=== PATIENT | female | born 1995 | race Caucasian/White ===

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

== ENCOUNTER 2017-08-15 15:55 | Outpatient (CLI) | END 2017-08-15 15:56 | disposition home or self-care (01) | LOC: FCC-LAB 15:55 | PROVIDERS: ATTEND Nurse Practitioner Family | DX: J02.9 Acute pharyngitis, unspecified (principal); R52 Pain, unspecified | CPT/HCPCS: 87651; 87804 ==

== ENCOUNTER 2017-08-22 14:53 | Outpatient (CLI) ==
--- NOTE | 2017-08-22 15:15 | DI ---
EXAM: Three views of the left wrist. History: Left wrist pain. Findings: No acute fracture or dislocation. No abnormal calcifications or radiopaque foreign bodies . Joint spaces are preserved. Impression: Unremarkable exam
== END 2017-08-22 14:54 | disposition home or self-care (01) ==
LOC: RAD 14:53
PROVIDERS: ATTEND Nurse Practitioner Family
DX: M25.532 Pain in left wrist (principal)

== ENCOUNTER 2017-12-27 20:32 | Emergency (ER) ==
[2017-12-27 20:41] VITALS: BP 121/80; TEMP 97.6; BMI 27.5
--- NOTE | 2017-12-27 20:53 | ED.PDOC ---
General ED Provider: Dr. AKUA KHAN Chief Complaint: Abdominal Pain Stated Complaint: Having abdominal cramping, having bleeding. checked pregancy it was positive Time Seen by Physician: 20:51 Mode of Arrival: Walk-In Information Source: Patient Primary Care Provider: IAN BREWER Nursing and Triage Documentation Reviewed and Agree: Yes Does patient meet sepsis criteria?: No If yes, has appropriate treatment been initiated?: No System Inflammatory Response Syndrome: Not Applicable Sepsis Protocol: For patient's 13 years and over: Temp is 96.8 and below OR 101 and greater Pulse >90 BPM Resp >20/minute Acutely Altered Mental Status Are patient's symptoms suggestive of a new infection, such as: -Pneumonia -Skin, Soft Tissue -Endocarditis -UTI -Bone, Joint Infection -Implantable Device -Acute Abdominal Infection -Wound Infection -Meningitis -Blood Stream Catheter Infection -Unknown [employer] Complaint Exam - Vaginal Bleeding Complaint/Exam Symptoms Are: Still present Timing: Constant Initial Severity: Moderate Current Severity: Moderate Character: Reports: Bright red, Clots Aggravating: Reports: None Alleviating: Reports: None Associated Signs and Symptoms: Reports: Cramping. Denies: Dizziness, Lightheadedness, Pale, UTI symptoms, Abdominal pain, Generalized pain : 0 Para: 0 Hx Total # of Abortions (Spontaneous & Elective): 0 Ectopic Risk Factors: Reports: None Spontaneous AB Risk Factors: Reports: None Placental Abruption Risk Factors: Reports: None Patient Rh Status: Unknown Related Surgical History: Reports: None Abdominal Findings: Present: None Differential Diagnoses: Threatened AB, Incomplete AB Review of Systems - Review Of Systems Constitutional: Reports: No symptoms Eyes: Reports: No symptoms Ears, Nose, Mouth, Throat: Reports: No symptoms Respiratory: Reports: No symptoms Cardiac: Reports: No symptoms GI: Reports: No symptoms : Reports: No symptoms Musculoskeletal: Reports: No symptoms Skin: Reports: No symptoms Neurological: Reports: No symptoms Endocrine: Reports: No symptoms Hematologic/Lymphatic: Reports: No symptoms All Other Systems: Reviewed and Negative Past Medical History - Past Medical History Previously Healthy: Yes Endocrine: Reports: None Cardiovascular: Reports: None Respiratory: Reports: None Hematological: Reports: None Gastrointestinal: Reports: None Genitourinary: Reports: None Neuro/Psych: Reports: None Musculoskeletal: Reports: None Cancer: Reports: None Last Menstrual Period: current - Surgical History General Surgical History: Reports: None - Family History Family History: Reports: None - Social History Smoking Status: Never smoker Hx Substance Use: No Alcohol Screening: Occasionally - Immunizations Tetanus Shot up to Date: Yes Physical Exam - Physical Exam Appearance: Well-appearing, No pain distress, Well-nourished Eyes: GEORGE, EOMI, Conjunctiva clear ENT: Ears normal, Nose normal, Oropharynx normal Respiratory: Airway patent, Breath sounds clear, Breath sounds equal, Respirations nonlabored Cardiovascular: RRR, Pulses normal, No rub, No murmur GI/: Soft, Nontender, No masses, Bowel sounds normal, No Organomegaly Musculoskeletal: Normal strength, ROM intact, No edema, No calf tenderness Skin: Warm, Dry, Normal color Neurological: Sensation intact, Motor intact, Reflexes intact, Cranial nerves intact, Alert, Oriented Psychiatric: Affect appropriate, Mood appropriate Critical Care Note - Critical Care Note Total Time (mins): 30 Course - Course Hematology/Chemistry: 12/27/17 20:57 12/27/17 20:57 Orders, Labs, Meds: Lab Review 12/27/17 12/27/17 12/27/17 20:42 20:42 20:57 WBC 9.26 RBC 4.49 Hgb 13.1 Hct 38.2 MCV 85.1 MCH 29.2 MCHC 34.3 RDW Coeff of [place] 11.9 Plt Count 188 Immature Gran % (Auto) 0.3 Neut % (Auto) 60.0 Lymph % (Auto) 31.7 [place] % (Auto) 6.7 Eos % (Auto) 1.0 Baso % (Auto) 0.3 Immature Gran # (Auto) 0.0 Neut # (Auto) 5.6 Lymph # (Auto) 2.9 [place] # (Auto) 0.6 Eos # (Auto) 0.1 Baso # (Auto) 0.0 Sodium Potassium Chloride Carbon Dioxide Anion Gap BUN Creatinine Estimated GFR (MDRD) BUN/Creatinine Ratio Glucose Calcium Total Bilirubin AST ALT Alkaline Phosphatase Total Protein Albumin Globulin Albumin/Globulin Ratio Serum , Qual Urine Color Yellow Urine Clarity Clear Urine pH 7.0 Ur Specific [place] 1.015 Urine Protein Negative Urine Glucose (UA) Negative Urine Ketones Negative Urine Blood 2+ Urine Nitrite Negative Urine Bilirubin Negative Urine Urobilinogen 0.2 Ur Leukocyte Esterase Negative Urine Microscopic RBC 20-30 Urine Microscopic WBC 2-5 Ur Squamous Epith Cells 2-5 Urine Test Negative 12/27/17 12/27/17 20:57 20:57 WBC RBC Hgb Hct MCV MCH MCHC RDW Coeff of [place] Plt Count Immature Gran % (Auto) Neut % (Auto) Lymph % (Auto) [place] % (Auto) Eos % (Auto) Baso % (Auto) Immature Gran # (Auto) Neut # (Auto) Lymph # (Auto) [place] # (Auto) Eos # (Auto) Baso # (Auto) Sodium 139 Potassium 3.3 L Chloride 107 Carbon Dioxide 23 Anion Gap 12.3 BUN 12 Creatinine 0.69 Estimated GFR (MDRD) 108.00 BUN/Creatinine Ratio 17.39 Glucose 108 Calcium 9.0 Total Bilirubin 0.4 AST 12 L ALT 12 Alkaline Phosphatase 73 Total Protein 7.4 Albumin 3.9 Globulin 3.5 Albumin/Globulin Ratio 1.11 Serum , Qual Negative Urine Color Urine Clarity Urine pH Ur Specific [place] Urine Protein Urine Glucose (UA) Urine Ketones Urine Blood Urine Nitrite Urine Bilirubin Urine Urobilinogen Ur Leukocyte Esterase Urine Microscopic RBC Urine Microscopic WBC Ur Squamous Epith Cells Urine Test Orders Category Date Time Status CBC W/ AUTO DIFF Stat LAB 12/27/17 20:57 Completed CMP [COMPREHENSIVE METABOLIC PANEL] Stat LAB 12/27/17 20:57 Completed SERUM Stat LAB 12/27/17 20:57 Completed URINALYSIS C & S IF INDICATED Stat LAB 12/27/17 20:42 Completed URINE Stat LAB 12/27/17 20:42 Completed Vital Signs: Temp Pulse Resp BP Pulse Ox 12/27/17 20:32 97.6 F 98 H 15 121/80 99 Departure - Departure Time of Disposition: 22:01 Disposition: HOME SELF-CARE Discharge Problem: Abdominal pain Instructions: Dysmenorrhea (ED) Condition: Stable Pt referred to PMD for follow-up: Yes IPMP verified?: No Additional Instructions: Tylenol or Ibuprofen prn f/u [facility] Allergies/Adverse Reactions: Allergies No Known Allergies Allergy (Unverified 12/27/17 20:36) Home Medications: Ambulatory Orders 1 [No Reported Medications] 12/27/17 Disposition Discussed With: Patient, Family
== END 2017-12-27 22:00 | disposition home or self-care (01) ==
LOC: ED 20:32
DX: R10.9 Unspecified abdominal pain (principal); N94.6 Dysmenorrhea, unspecified
CPT/HCPCS: 36415; 80053; 81001; 81025; 84703; 85025; 99283

== ENCOUNTER 2018-10-08 21:07 | Emergency (ER) ==
[2018-10-08 21:15] VITALS: BMI 28.3
--- NOTE | 2018-10-08 23:18 | ED.PDOC ---
General ED Provider: Dr. JUVENTINO ESTRELLA-ER Chief Complaint: Abdominal Pain Stated Complaint: im hurting Time Seen by Physician: 21:10 Mode of Arrival: Walk-In Information Source: Patient Exam Limitations: No limitations Nursing and Triage Documentation Reviewed and Agree: Yes Does patient meet sepsis criteria?: No System Inflammatory Response Syndrome: Not Applicable Sepsis Protocol: For patient's 13 years and over: Temp is 96.8 and below OR 101 and greater Pulse >90 BPM Resp >20/minute Acutely Altered Mental Status Are patient's symptoms suggestive of a new infection, such as: -Pneumonia -Skin, Soft Tissue -Endocarditis -UTI -Bone, Joint Infection -Implantable Device -Acute Abdominal Infection -Wound Infection -Meningitis -Blood Stream Catheter Infection -Unknown Complaint Exam - Complaint/Exam Patient Complains of: Reports: Pain Symptoms Are: Still present Initial Severity: Mild Current Severity: Moderate Location of Pain: Reports: Diffuse Character: Reports: Dull Alleviating: Reports: None Associated Signs and Symptoms: Reports: Abdominal Pain Review of Systems - Review Of Systems Constitutional: Reports: No symptoms Eyes: Reports: No symptoms Ears, Nose, Mouth, Throat: Reports: No symptoms Respiratory: Reports: No symptoms Cardiac: Reports: No symptoms GI: Reports: Abdominal pain : Reports: No symptoms Musculoskeletal: Reports: No symptoms Skin: Reports: No symptoms Neurological: Reports: No symptoms Endocrine: Reports: No symptoms Hematologic/Lymphatic: Reports: No symptoms All Other Systems: Reviewed and Negative Past Medical History - Past Medical History Previously Healthy: Yes Endocrine: Reports: None Cardiovascular: Reports: None Respiratory: Reports: None Hematological: Reports: None Gastrointestinal: Reports: None Genitourinary: Reports: None Neuro/Psych: Reports: None Musculoskeletal: Reports: None Cancer: Reports: None Last Menstrual Period: 09/09/18 - Surgical History General Surgical History: Reports: None - Family History Family History: Reports: None - Social History Smoking Status: Former smoker Hx Substance Use: No Alcohol Screening: Occasionally - Immunizations Tetanus Shot up to Date: Yes Physical Exam - Physical Exam Appearance: Well-appearing Eyes: GEORGE, EOMI, Conjunctiva clear ENT: Ears normal, Nose normal, Oropharynx normal Neck: Supple Respiratory: Airway patent, Breath sounds clear, Breath sounds equal, Respirations nonlabored Cardiovascular: RRR, Pulses normal, No rub, No murmur GI/: Soft, Nontender, No masses, Bowel sounds normal, No Organomegaly Musculoskeletal: Normal strength, ROM intact, No edema, No calf tenderness Skin: Warm, Dry, Normal color Neurological: Sensation intact, Motor intact, Reflexes intact, Cranial nerves intact, Alert, Oriented Psychiatric: Affect appropriate, Mood appropriate Critical Care Note - Critical Care Note Total Time (mins): 0 Course - Course Hematology/Chemistry: 10/08/18 21:32 10/08/18 21:32 Orders, Labs, Meds: Lab Review 10/08/18 10/08/18 10/08/18 21:32 21:32 21:32 WBC 10.28 H RBC 4.40 Hgb 13.1 Hct 38.6 MCV 87.7 MCH 29.8 MCHC 33.9 RDW Coeff of [place] 11.9 Plt Count 224 Immature Gran % (Auto) 0.2 Neut % (Auto) 56.7 Lymph % (Auto) 33.7 [place] % (Auto) 7.3 Eos % (Auto) 1.9 Baso % (Auto) 0.2 Immature Gran # (Auto) 0.0 Neut # (Auto) 5.8 Lymph # (Auto) 3.5 H [place] # (Auto) 0.8 Eos # (Auto) 0.2 Baso # (Auto) 0.0 Sodium 140.0 Potassium 3.50 Chloride 104.0 Carbon Dioxide 24.0 Anion Gap 15.50 BUN 10.0 Creatinine 0.50 L Estimated GFR (MDRD) 156.00 BUN/Creatinine Ratio 20.00 Glucose 105.0 Calcium 8.10 L Total Bilirubin 0.40 AST 22.0 ALT 16.0 Alkaline Phosphatase 77.0 Total Protein 7.70 Albumin 4.70 Globulin 3.00 Albumin/Globulin Ratio 1.56 HCG, Quant Serum , Qual Positive Urine Color Urine Clarity Urine pH Ur Specific [place] Urine Protein Urine Glucose (UA) Urine Ketones Urine Blood Urine Nitrite Urine Bilirubin Urine Urobilinogen Ur Leukocyte Esterase Urine Microscopic WBC Ur Squamous Epith Cells Urine Bacteria 10/08/18 10/08/18 21:45 23:05 WBC RBC Hgb Hct MCV MCH MCHC RDW Coeff of [place] Plt Count Immature Gran % (Auto) Neut % (Auto) Lymph % (Auto) [place] % (Auto) Eos % (Auto) Baso % (Auto) Immature Gran # (Auto) Neut # (Auto) Lymph # (Auto) [place] # (Auto) Eos # (Auto) Baso # (Auto) Sodium Potassium Chloride Carbon Dioxide Anion Gap BUN Creatinine Estimated GFR (MDRD) BUN/Creatinine Ratio Glucose Calcium Total Bilirubin AST ALT Alkaline Phosphatase Total Protein Albumin Globulin Albumin/Globulin Ratio HCG, Quant 102.050 Serum , Qual Urine Color Yellow Urine Clarity Clear Urine pH 7.5 Ur Specific [place] 1.015 Urine Protein Negative Urine Glucose (UA) Negative Urine Ketones Negative Urine Blood Trace-intact Urine Nitrite Negative Urine Bilirubin Negative Urine Urobilinogen 0.2 Ur Leukocyte Esterase Trace Urine Microscopic WBC 0-2 Ur Squamous Epith Cells 0-2 Urine Bacteria Trace Orders Category Date Time Status CBC W/ AUTO DIFF Stat LAB 10/08/18 21:32 Completed COMPREHENSIVE METABOLIC PANEL Stat LAB 10/08/18 21:32 Completed HCG,QUANTITATIVE Stat LAB 10/08/18 21:45 Completed SERUM Stat LAB 10/08/18 21:32 Completed UA [URINALYSIS C & S IF INDICATED] Stat LAB 10/08/18 23:05 Completed Vital Signs: Temp Pulse Resp BP Pulse Ox 10/08/18 23:25 98 F 89 18 107/75 99 10/08/18 21:07 98.3 F 101 H 20 129/84 98 Departure - Departure Time of Disposition: 23:46 Disposition: TSF SHORT-TRM HOSP Discharge Problem: Abdominal pain, Positive test Instructions: (ED) Condition: Good Pt referred to PMD for follow-up: No IPMP verified?: No Allergies/Adverse Reactions: Allergies No Known Allergies Allergy (Verified 10/08/18 21:14) Home Medications: Ambulatory Orders 1 [No Reported Medications] 12/27/17 Transfer Form Completed: Yes Disposition Discussed With: Patient, Family
[2018-10-08 23:26] VITALS: BP 107/75; TEMP 98
[2018-10-08] MEDS ORDERED: LACTATED RINGERS 1,000 ML IV STA (23:47)
== END 2018-10-09 00:20 | disposition short-term general hospital (02) ==
LOC: ED 21:07
DX: R10.9 Unspecified abdominal pain (principal); Z33.1 Pregnant state, incidental
CPT/HCPCS: 36415; 80053; 81001; 84702; 84703; 85025; 96360; 96361; 99285

== ENCOUNTER 2018-10-09 00:22 | Outpatient (CLI) ==
[2018-10-08 21:15] VITALS: BMI 28.3
== END 2018-10-09 00:48 | disposition short-term general hospital (02) ==
LOC: AMBL 00:22
PROVIDERS: ATTEND Family Medicine
DX: R10.9 Unspecified abdominal pain (principal)